=== PATIENT | female | born 1980 | race Two or more races ===

== ENCOUNTER 2018-03-18 19:27 | Emergency (ER) | payer OTHER ==
[~2018-03-18] VITALS: Ht 172.7 cm; Wt 98.0 kg
--- NOTE | 2018-03-18 19:33 | NUR ---
Dr. Stacy at bedside for MSE.
--- NOTE | 2018-03-18 19:38 | NUR ---
Pt was brought in by [facility] with c/o left ankle pain. She is also here with her 2 year old son. Pt states she was picking her son up from daycare and sprained her left ankle 30 min before she arrived. AAOX4. There is also an abrasion noted on her right knee.
[2018-03-18] MEDS ORDERED: IBUPROFEN 600 MG TABLET PO ONE (19:45)
[2018-03-18] MEDS ORDERED: ACETAMINOPHEN 325 MG TABLET PO ONE (19:45)
[2018-03-18] MEDS ORDERED: IBUPROFEN 600 MG TABLET ONE (19:54)
[2018-03-18] MEDS ORDERED: ACETAMINOPHEN ES 500 MG TABLET ONE (19:54)
--- NOTE | 2018-03-18 22:34 | NUR ---
Patient discharged to home in stable conditon. Written and verbal after care instructions given. Patient verbalizes understanding of instructions. Pt ambulated out of ER with CAM walking boot (left) and crutches. Provided return demonstration. Pt has to take her and her son home. VSS. NAD noted.
[2018-03-18 22:35] VITALS: BP 126/74
== END 2018-03-18 22:36 | disposition home or self-care (01) ==
LOC: ER 19:31
DX: S92.902A Unspecified fracture of left foot, initial encounter for closed fracture (principal); S80.211A Abrasion, right knee, initial encounter; X50.1XXA Overexertion from prolonged static or awkward postures, initial encounter; Y93.89 Activity, other specified; Y92.89 Other specified places as the place of occurrence of the external cause; Y99.8 Other external cause status
CPT/HCPCS: 73630; A4663; A9150

== ENCOUNTER 2020-01-22 14:58 | Emergency (ER) | payer MEDICAID, OTHER ==
[~2020-01-22] VITALS: Ht 172.7 cm; Wt 108.9 kg
--- NOTE | 2020-01-22 15:10 | NUR ---
Pt ambulatory w/ stable gait. Pt able to speak clear complete sentences. pt able to follow instructions with ease.[id number], Pt states she fell to her L elbow today. Pt denies hitting head.
[2020-01-22] MEDS ORDERED: ESCI10TA PO (15:15)
--- NOTE | 2020-01-22 15:17 | NUR ---
atmospheric technician at bedside. Pt nad vss ra kept comfortable, sr x1, bed at lowest position
--- NOTE | 2020-01-22 16:00 | NUR ---
Pt able to tolerate and reports significant relief of pain after fitting of L shoulder sling (L). CMS check done. pt agrees with plan of care and verbalized understanding of RICE.
--- NOTE | 2020-01-22 16:08 | NUR ---
Patient discharged to home in stable condition. Written and verbal after care instructions given. Patient verbalizes understanding of instructions. Stressed follow up or return to ER for worsening s/s.
[2020-01-22 16:09] VITALS: BP 115/68
== END 2020-01-22 16:09 | disposition home or self-care (01) ==
LOC: ER 15:13
DX: S50.02XA Contusion of left elbow, initial encounter (principal); W18.30XA Fall on same level, unspecified, initial encounter; Y93.21 Activity, ice skating; Y92.89 Other specified places as the place of occurrence of the external cause
CPT/HCPCS: 73080; A4663